=== PATIENT | male | born 1950 | race Caucasian/White ===

== ENCOUNTER → 2017-04-11 | Day surgery (SDC) | payer MEDICARE ==
[~2017-04-11] VITALS: Ht 182.9 cm; Wt 99.8 kg
[~2017-04-11] MED LIST: ADLT ASA LOW81 MG PO; CELEXA40 MG PO; CO Q-10 PO; FISH OIL1000 MG PO; FLEXERIL10 MG PO; LIPITOR40 MG PO; METFORMIN500 MG PO; NEXIUM20 M1 PO; NEXIUM40 M1 PO; OMEGA 3 PO; VIAGRA25 MG PO; VIAGRA50 MG PO
[2017-04-11 12:17] VITALS: BP 133/83
== END | disposition home or self-care (01) ==
LOC: ENDO 08:07
PROVIDERS: ATTEND Surgery
PROC: 0DBL8ZX Excision of Transverse Colon, Via Natural or Artificial Opening Endoscopic, Diagnostic (ICD-10-PCS; principal; 2017-04-11)
DX: Z12.11 Encounter for screening for malignant neoplasm of colon (principal); D12.3 Benign neoplasm of transverse colon; K57.30 Diverticulosis of large intestine without perforation or abscess without bleeding; E78.00 Pure hypercholesterolemia, unspecified; M19.90 Unspecified osteoarthritis, unspecified site